=== PATIENT | male | born 1965 | race Caucasian/White ===

== ENCOUNTER 2021-05-15 17:23 | Inpatient (IN) ==
[2021-05-15] MEDS ORDERED: IOPAMIDOL 100 ML BOTTLE IV ONE (17:24)
[2021-05-15] MEDS ORDERED: 0.9 % SODIUM CHLORIDE 500 ML IV ONE (18:03)
--- NOTE | 2021-05-15 18:16 | XRay Report ---
CLINICAL INFORMATION: Shortness of breath. Covid infiltrates COMPARISON: 05/10/2021. TECHNIQUE: PA and Lateral views FINDINGS: The heart size, mediastinum and pulmonary vessels are unremarkable. Bilateral infiltrates, more prominent in the right lung, are noted. There is general improvement in the left mid and lower lung, but progression throughout the right lung. No effusion. IMPRESSION: Bilateral infiltrates with slight worsening diffusely throughout the right lung but improvement in the left mid and lower lung Interpreted and Authenticated by: Jarred Packer 05/15/21
[2021-05-15] MEDS ORDERED: DEXAMETHASONE 10 MG/ML VIAL IV ONE (18:55)
[2021-05-15] MEDS ORDERED: DEXAMETHASONE 10 MG/ML VIAL ONE (19:30)
[2021-05-15 19:49] LABS: ALT/SGPT 31 U/L (<40); AST/SGOT 40 U/L (<40); Albumin 3.3 gm/dL (3.2-5.2); Albumin/Globulin Ratio 1.1 (1.0-2.3); Alkaline Phosphatase 99 U/L (39-117); Blood Urea Nitrogen 23 mg/dL (6-20); Calcium 7.8 mg/dL (8.6-10.4); Carbon Dioxide 18 mmol/L (22-30); Chloride 99 mmol/L (96-108); Globulin 3.1 gm/dL (2.2-3.7); Glomerular Filtration Rate 85; Glucose 346 mg/dL (70-105)
--- NOTE | 2021-05-15 19:53 | Emergency Department Note ---
SOB HPI General Chief Complaint: Shortness of Breath/Dyspnea Stated Complaint: SOB, Hypoxia, COVID + Time Seen by Provider: 05/15/21 17:32 Source: patient Mode of arrival: ambulatory History of Present Illness HPI Narrative: 55-year-old male with known COVID-19 for at least 10 days now presenting back to the ED with sudden acute worsening just today. Is severely developing worsening shortness of breath. Denies any chest pain. Denies any GI symptoms or abdominal pain. Intermittent fevers. He was seen roughly a week ago diagnosed with COVID-19 at that time it was mild was sent home with home oxygen and dexamethasone was initially doing well but then acutely worsened today. No history of DVT or PE no leg swelling. He was quite hypoxic for EMS despite nonrebreather was given 3 duo nebs. Further detailed history unobtainable given respiratory distress Related Data Home Medications Medication Instructions Recorded Confirmed atorvastatin 10 mg tablet 5 mg PO QHS tab 05/10/21 05/10/21 glipizide 10 mg tablet, extended 20 mg PO QDAY tab 05/10/21 05/10/21 release 24 hr insulin degludec 200 unit/mL (3 100 unit SUBCUT QHS ml 05/10/21 05/10/21 mL) subcutaneous pen (Tresiba FlexTouch U-200 insulin) metformin 500 mg tablet,extended 1,000 mg PO BID tab 05/10/21 05/10/21 release 24 hr semaglutide 1 mg/dose (2 mg/1.5 1 mg SUBCUT QWEEK 05/10/21 05/10/21 mL) subcutaneous pen injector (Ozempic) sildenafil 100 mg tablet (Viagra) 100 mg PO QDAY PRN 05/10/21 05/10/21 spironolactone 25 mg tablet 25 mg PO QDAY 05/10/21 05/10/21 tamsulosin 0.4 mg capsule 0.4 mg PO QHS 05/10/21 05/10/21 testosterone cypionate 200 mg/mL 200 mg IM QWEEK ml 05/10/21 05/10/21 intramuscular oil (Depo-Testosterone) thyroid (pork) 90 mg tablet (FOOD SERVICE ATTENDANT 90 mg PO QDAY 05/10/21 05/10/21 Thyroid) valsartan 320 1 tab PO QDAY 05/10/21 05/10/21 mg-hydrochlorothiazide 25 mg tablet Previous Rx's Medication Instructions Recorded dexamethasone 6 mg tablet 6 mg PO QDAY #5 tab 05/10/21 Allergies Allergy/AdvReac Type Severity Reaction Status Date / Time No Known Drug Allergies Allergy Verified 05/15/21 17:33 Review of Systems ROS ROS Narrative: Narrative: Full review of systems unobtainable given respiratory distress PFSH Narrative Patient History Narrative: Narrative: Medical/Surgical/Family History All Active Problems (Updated 05/15/21 @ 21:05 by Johnny Campos DO) Pneumonia due to COVID-19 virus (Acute) Hypoxemia (Acute) Sepsis (Acute) Respiratory distress (Acute) Medical History Respiratory distress Social History Smoking Status: Former smoker Alcohol Intake Frequency: holiday/special occasion only Substance Use: does not use Exam Narrative Narrative: Constitutional: normally developed, in respiratory distress, anxious Head: Normocephalic, atraumatic, Eyes: No Icterus, ENT: Moist mucus membranes, Neck: Supple, Cardiac: Tachycardic regular heart sounds, palpable radial pulses, no peripheral edema Pulmonary: Hypoxic respiratory distress tachypneic; coarse breath sounds but no obvious wheeze rhonchi or rale Gastrointestinal: Abdomen soft, non-distended, non-tender, Musculoskeletal: No gross deformities, well perfused Skin: warm, dry Neuro: Alert and oriented. Course Vital Signs Vital signs: Vital Signs Temperature 36.8 C 05/15/21 17:25 Pulse Rate 127 H 05/15/21 17:25 Respiratory Rate 32 H 05/15/21 17:25 Pulse Oximetry (%) 79 L 05/15/21 17:25 Temperature 36.8 C 05/15/21 17:25 Pulse Rate 123 H 05/15/21 20:47 Respiratory Rate 30 H 05/15/21 20:47 Blood Pressure 158/147 05/15/21 20:47 Pulse Oximetry (%) 89 L 05/15/21 20:47 [facility] MDM Narrative Medical decision making narrative: Narrative: Patient with known COVID-19 now severely worsening today he is very hypoxic tachypneic, was immediately placed initially on BiPAP which he was having difficulty with so transition to high flow nasal cannula and work-up initiated, did initially give him a small fluid bolus Twelve-lead EKG shows sinus tachycardia 121 MO, QRS, QTc within normal, LVH type pattern, poor R wave progression, no obvious acute ischemia Reevaluation is improving on high flow nasal cannula but tends to mouth breathe a lot we will try him once again on BiPAP to see if he is more comfortable ABG shortly after being placed on high flow shows pH 7.48 PCO2 of 24 lactic acid 2.4 and a PO2 of 59 Chest x-ray with worsening COVID-19 awaiting further diagnostic results Electrolytes do show hyperglycemia 346 with a slightly elevated anion gap of 18 low normal bicarb, less suspicious for acute DKA, and ABG is not acidotic, suspect this is more likely due to severe COVID-19 and elevated lactic acid, is given further IV fluids 5 units IV insulin, will trend CT shows diffuse COVID-19 no PE CBC does show a new leukocytosis 12.8 up from 3, given his respiratory distress and presentation will cover him for possible bacterial pneumonia until can be further ruled out, given Rocephin azithromycin procalcitonin pending On reevaluation patient appears most comfortable on high flow nasal cannula also with a nonrebreather to help with his mouth breathing. His sats are in the 90s still a bit tachypneic but much improved he is now able to speak in sentences on this oxygen feels much better. I have spoken with the hospitalist who accepts admission ICU. Patient does meet sepsis criteria, almost certainly from COVID-19 source, he is clinically improving with our initial treatment, he has received a total of 1 L of IV fluids judiciously so as not to volume overload patient with acute COVID- 19. He is on antibiotics, will trend his lactate and he is admitted to the ICU at this time Critical Care Time Total CriticalCare time was at least 35 minutes, excluding separately reportable procedures. There was a high probability of clinically significant/life threatening deterioration in the patient's condition which required my urgent intervention. Lab Data Result diagrams: 05/15/21 18:30 05/15/21 18:30 Labs: Lab Results 05/15/21 05/15/21 05/15/21 Range/Units 18:30 18:30 18:30 WBC 12.8 H (4.5-11.0) K/mcL RBC 6.77 H (4.63-6.08) M/mcL Hgb 14.1 (13.7-17.5) g/dL Hct 45.0 (40.1-51.0) % MCV 66.5 L (80.0-100.0) fL MCH 20.8 L (26.0-34.0) pg MCHC 31.3 (31.0-36.0) g/dL RDW 21.3 H (11.5-14.5) % Plt Count 176 (140-440) K/mcL MPV 9.8 (7.4-10.4) fL Seg Neutrophils % 86 H (38-78) % Band Neutrophils % 1 (0-10) % Lymphocytes % 8 L (15-49) % Monocytes % (Manual) 5 (1-12) % Platelet Estimate Normal (Normal) RBC Morphology Abnormal A (Normal) Polychromasia 1+ A (None Seen) Hypochromasia 1+ A (None Seen) Anisocytosis 1+ A (None Seen) Microcytosis 1+ A (None Seen) Sodium 135 (133-145) mmol/L Potassium 5.1 (3.3-5.1) mmol/L Chloride 99 (96-108) mmol/L Carbon Dioxide 18 L (22-30) mmol/L Anion Gap 18.0 H (8.0-16.0) BUN 23 H (6-20) mg/dL Creatinine 1.0 (0.7-1.2) mg/dL POC Creatinine 1.0 (0.6-1.2) mg/dL GFR Calculation 85 Glucose 346 H (70-105) mg/dL Calcium 7.8 L (8.6-10.4) mg/dL Total Bilirubin 1.0 (0.1-1.0) mg/dL AST 40 H (<40) U/L ALT 31 (<40) U/L Alkaline Phosphatase 99 (39-117) U/L Troponin T < 0.01 (<0.03) ng/mL C-Reactive Protein 3.90 H (0.03-0.80) mg/dL Total Protein 6.4 (5.9-8.4) gm/dL Albumin 3.3 (3.2-5.2) gm/dL Globulin 3.1 (2.2-3.7) gm/dL Albumin/Globulin Ratio 1.1 (1.0-2.3) Procalcitonin (<0.10) ng/mL 12/13/21 Range/Units 18:30 WBC (4.5-11.0) K/mcL RBC (4.63-6.08) M/mcL Hgb (13.7-17.5) g/dL Hct (40.1-51.0) % MCV (80.0-100.0) fL MCH (26.0-34.0) pg MCHC (31.0-36.0) g/dL RDW (11.5-14.5) % Plt Count (140-440) K/mcL MPV (7.4-10.4) fL Seg Neutrophils % (38-78) % Band Neutrophils % (0-10) % Lymphocytes % (15-49) % Monocytes % (Manual) (1-12) % Platelet Estimate (Normal) RBC Morphology (Normal) Polychromasia (None Seen) Hypochromasia (None Seen) Anisocytosis (None Seen) Microcytosis (None Seen) Sodium (133-145) mmol/L Potassium (3.3-5.1) mmol/L Chloride (96-108) mmol/L Carbon Dioxide (22-30) mmol/L Anion Gap (8.0-16.0) BUN (6-20) mg/dL Creatinine (0.7-1.2) mg/dL POC Creatinine (0.6-1.2) mg/dL GFR Calculation Glucose (70-105) mg/dL Calcium (8.6-10.4) mg/dL Total Bilirubin (0.1-1.0) mg/dL AST (<40) U/L ALT (<40) U/L Alkaline Phosphatase (39-117) U/L Troponin T (<0.03) ng/mL C-Reactive Protein (0.03-0.80) mg/dL Total Protein (5.9-8.4) gm/dL Albumin (3.2-5.2) gm/dL Globulin (2.2-3.7) gm/dL Albumin/Globulin Ratio (1.0-2.3) Procalcitonin 0.20 H (<0.10) ng/mL Discharge Plan Patient/Caregiver Discharge Instructions Pt seen by FOOD SERVICE ATTENDANT/PA only: No Clinical Impression: Pneumonia due to COVID-19 virus, Hypoxemia, Sepsis Patient Disposition: Xfer Acute [facility] Condition: Critical Follow up with: Carina Hector ARNP [Primary Care Provider] - Prescriptions: No Action metformin 500 mg tablet extended release 24 hr 1,000 mg PO BID 0RF thyroid (pork) [FOOD SERVICE ATTENDANT Thyroid] 90 mg tablet 90 mg PO QDAY 0RF Tresiba FlexTouch U-200 200 unit/mL (3 mL) insulin pen 100 unit subcut QHS 0RF atorvastatin 10 mg tablet 5 mg PO QHS 0RF tamsulosin 0.4 mg capsule 0.4 mg PO QHS 0RF spironolactone 25 mg tablet 25 mg PO QDAY 0RF valsartan-hydrochlorothiazide 320-25 mg tablet 1 tab PO QDAY 0RF glipizide 10 mg tablet extended release 24hr 20 mg PO QDAY 0RF Ozempic 1 mg/dose (2 mg/1.5 mL) pen injector 1 mg subcut QWEEK 0RF sildenafil [Viagra] 100 mg tablet 100 mg PO QDAY [id number] Rx Instructions: administer 30 minutes to 4 hours before activity testosterone cypionate [Depo-Testosterone] 200 mg/mL oil 200 mg IM QWEEK 0RF dexamethasone 6 mg tablet 6 mg PO QDAY Qty: 5 0RF
[2021-05-15] MEDS ORDERED: LACTATED RINGERS 500 ML IV ONE (19:54)
[2021-05-15] MEDS ORDERED: INSULIN REGULAR, HUMAN 1 UNIT/0.01 ML UNIT IV ONE (19:54)
[2021-05-15] MEDS ORDERED: LORazepam 2 MG/ML VIAL IV ONE (19:54)
[2021-05-15 19:58] LABS: Anisocytosis 1+ (None Seen); Band Neutrophils % 1 % (0-10); Hypochromasia 1+ (None Seen); Lymphocytes % 8 % (15-49); Microcytosis 1+ (None Seen); Monocytes % (Manual) 5 % (1-12); Platelet Estimate NORMAL (Normal); Polychromasia 1+ (None Seen); RBC Morphology ABNORMAL (Normal); Segmented Neutrophils % 86 % (38-78)
[2021-05-15 20:00] LABS: Hemoglobin 14.1 g/dL (13.7-17.5); Mean Cell Volume 66.5 fL (80.0-100.0); Mean Corpuscular HGB Conc 31.3 g/dL (31.0-36.0); Mean Platelet Volume 9.8 fL (7.4-10.4); Platelet Count 176 K/mcL (140-440); RBC 6.77 M/mcL (4.63-6.08); Red Cell Distribution Width 21.3 % (11.5-14.5); WBC 12.8 K/mcL (4.5-11.0)
[2021-05-15] MEDS ORDERED: cefTRIAXone 1 GM VIAL IV ONE (20:03)
[2021-05-15] MEDS ORDERED: AZITHROMYCIN 500 MG in DEXTROSE 5% IN WATER 250 ML IV ONE (20:03)
[2021-05-15] MEDS ORDERED: ACETAMINOPHEN 1,000 MG/100 ML BAG IV ONE (21:01)
--- NOTE | 2021-05-15 21:19 | Internal Med History&Physical ---
HPI History of Present Illness Patient information: Note initiated : 05/15/21 at 9:10 pm Service Date, if different from initiated Date: [] Patient: Alvin Catalan a 55 y/o M admitted on for SOB, Hypoxia, COVID +. Chief Complaint: [shortness of breath] History of present illness: Mr. Catalan is a 55 year old M history of type 2 diabetes mellitus, hypothyroidism, essential hypertension's, presenting with 10-day history of shortness of breath, productive cough, and respiratory wheezing. Patient started to have symptoms of shortness of breath, productive cough with yellow sputum, respiratory wheezing, subjective fever and shaking chills about 10 days ago. He presented to our ED 5 days ago when he was being diagnosed with Covid pneumonia. He was sent home on 2 L of nasal cannula oxygen as well as dexamethasone. This morning he woke up feeling a lot worse decreased shortness of breath. As a result, he decided to come to our ED for further evaluations. Vital signs showing oxygen desaturating to the 80s, as well as tachycardia and t achypnea heart rate in the 1 teens and with the breathing up to 30s, respectively. Labs showing leukocytosis with WBC 12.8. Inflammatory markers elevated. Blood glucose 346. Chest x-ray showing bilateral infiltrate with likely worsening diffusely throughout the right lung but improvement in the left mid and lower lungs. Chest CT angiogram negative for any pulmonary embolism. Patient was being placed on high flow oxygen. Constitutional Constitutional: Present chills and fever(s); Absent excessive sweating, fatigue or weakness EENT Eyes: Absent blurry vision, change in vision, loss of vision or other visual disturbances Ears: Absent decreased hearing or tinnitus Nose, mouth and throat: Absent abnormal hearing, dry mouth, headache(s), nasal congestion or sore throat Cardiovascular Cardiovascular: Absent chest pain, chest pain at rest, edema, irregular heart rhythm or palpatations Respiratory Respiratory: Present cough, dyspnea, wheezing and excessive phlegm production Gastrointestinal Gastrointestinal: Absent abdominal pain, constipation, diarrhea, nausea or vomiting Musculoskeletal Musculoskeletal: Absent back pain, deformity, limited range of motion, muscle cramps, muscle weakness or numbness Integumentary Integumentary: Absent lesions, rash or wounds Neurological Neurological: Absent focal weakness, headache(s) or numbness Psychiatric Psychiatric: Absent anxiety, depression or hallucinations PFSH PFSH All Active Problems (Updated 05/15/21 @ 21:16 by Dequan Luque MD) Hypothyroidism (Acute) Essential hypertension (Acute) Obesity (BMI 30-39.9) (Acute) T2DM (type 2 diabetes mellitus) (Acute) Acute respiratory failure with hypoxia (Acute) Pneumonia due to COVID-19 virus (Acute) Hypoxemia (Acute) Sepsis (Acute) Respiratory distress (Acute) Medical History Respiratory distress Social History alcohol intake frequency: holiday/special occasion only substance use type: does not use MEDS/ALLERGIES Home Medications and Allergies Home Medications Medication Instructions Recorded Confirmed Type atorvastatin 10 mg tablet 5 mg PO QHS tab 05/10/21 05/10/21 History dexamethasone 6 mg tablet 6 mg PO QDAY #5 tab 05/10/21 Rx glipizide 10 mg tablet, extended 20 mg PO QDAY tab 05/10/21 05/10/21 History release 24 hr insulin degludec 200 unit/mL (3 100 unit SUBCUT QHS ml 05/10/21 05/10/21 Histo ry mL) subcutaneous pen (Tresiba FlexTouch U-200 insulin) metformin 500 mg tablet,extended 1,000 mg PO BID tab 05/10/21 05/10/21 History release 24 hr semaglutide 1 mg/dose (2 mg/1.5 1 mg SUBCUT QWEEK 05/10/21 05/10/21 History mL) subcutaneous pen injector (Ozempic) sildenafil 100 mg tablet (Viagra) 100 mg PO QDAY PRN 05/10/21 05/10/21 History spironolactone 25 mg tablet 25 mg PO QDAY 05/10/21 05/10/21 History tamsulosin 0.4 mg capsule 0.4 mg PO QHS 05/10/21 05/10/21 History testosterone cypionate 200 mg/mL 200 mg IM QWEEK ml 05/10/21 05/10/21 History intramuscular oil (Depo-Testosterone) thyroid (pork) 90 mg tablet (ARCHITECTURAL PROJECT MANAGER 90 mg PO QDAY 05/10/21 05/10/21 History Thyroid) valsartan 320 1 tab PO QDAY 05/10/21 05/10/21 History mg-hydrochlorothiazide 25 mg tablet Allergies Allergy/AdvReac Type Severity Reaction Status Date / Time No Known Drug Allergies Allergy Verified 05/15/21 17:33 EXAM Constitutional Vitals: Temp Pulse Resp BP Pulse Ox 36.8 C 123 H 30 H 158/147 89 L 05/15/21 17:25 05/15/21 20:47 05/15/21 20:47 05/15/21 20:47 05/15/21 20:47 General appearance: cooperative, mild distress, no acute distress and obese Head Head exam: Present atraumatic and normocephalic Eye Eye exam: Present EOMI and PERRL ENT ENT exam: Present mucous membranes moist, normal exam and normal external ear exam Additional comments: High flow oxygen plus oxymask in place Neck Neck exam: Present normal inspection; Absent lymphadenopathy, tenderness or thyromegaly Respiratory Respiratory exam: Present decreased breath sounds and rhonchi; Absent accessory muscle use, respiratory distress or wheezes Cardiovascular Cardiovascular exam: Present tachycardia; Absent JVD GI/Abdominal GI/Abdominal exam: Present normal bowel sounds and soft; Absent organomegaly or tenderness Rectal Rectal exam: Present deferred Extremities Exam Extremities exam: Present full ROM, normal capillary refill and normal inspection; Absent tenderness Neurological Exam Neurological exam: Present alert, CN II-XII intact and oriented X3; Absent motor sensory deficit Psychiatric Psychiatric exam: Present normal affect and normal mood; Absent anxious or depressed Skin Skin exam: Present dry and intact DATA Data Completed and Pending Labs: Labs from last 24 hours 05/15/21 05/15/21 05/15/21 18:30 18:30 18:30 WBC RBC Hgb Hct MCV MCH MCHC RDW Plt Count MPV Seg Neutrophils % Band Neutrophils % Lymphocytes % Monocytes % (Manual) Platelet Estimate RBC Morphology Polychromasia Hypochromasia Anisocytosis Microcytosis Sodium 135 Potassium 5.1 Chloride 99 Carbon Dioxide 18 L Anion Gap 18.0 H BUN 23 H Creatinine 1.0 POC Creatinine 1.0 GFR Calculation 85 Glucose 346 H Calcium 7.8 L Total Bilirubin 1.0 AST 40 H ALT 31 Alkaline Phosphatase 99 Troponin T < 0.01 C-Reactive Protein 3.90 H Total Protein 6.4 Albumin 3.3 Globulin 3.1 Albumin/Globulin Ratio 1.1 Procalcitonin 0.20 H 05/15/21 18:30 WBC 12.8 H RBC 6.77 H Hgb 14.1 Hct 45.0 MCV 66.5 L MCH 20.8 L MCHC 31.3 RDW 21.3 H Plt Count 176 MPV 9.8 Seg Neutrophils % 86 H Band Neutrophils % 1 Lymphocytes % 8 L Monocytes % (Manual) 5 Platelet Estimate Normal RBC Morphology Abnormal A Polychromasia 1+ A Hypochromasia 1+ A Anisocytosis 1+ A Microcytosis 1+ A Sodium Potassium Chloride Carbon Dioxide Anion Gap BUN Creatinine POC Creatinine GFR Calculation Glucose Calcium Total Bilirubin AST ALT Alkaline Phosphatase Troponin T C-Reactive Protein Total Protein Albumin Globulin Albumin/Globulin Ratio Procalcitonin A/P Assessment and plan (1) Pneumonia due to COVID-19 virus: Status: Acute (2) Acute respiratory failure with hypoxia: Status: Acute (3) T2DM (type 2 diabetes mellitus): Status: Acute (4) Obesity (BMI 30-39.9): Status: Acute (5) Essential hypertension: Status: Acute (6) Hypothyroidism: Status: Acute Narrative A/P Narrative: Assessment and Plans: 1. CoVID pneumonia with acute respiratory failure with hpoxia: Admit to inpatient PCU telemetry Isolation protocol: airborne and contact Lactic acid Inflammatory markers Blood culture cbc w/ auto diff in the morning to trend WBC ABG CXR every few days or when clinically deteriorates Supplemental oxygen therapy titrate to achieve spo2>=92%, currently on high flow oxygen 40L/min FiO2 100% plus oxymask Remdesivir Dexamethasone Actemra Lovenox HCTZ as gentle diuretics Tylenol PRN fever Robitussin DM PRN cough DuoNEB NEB PRN wheezing Rocehpin/Zithromax to cover bacterial pneumonia given R>L infiltrates in the CXR 2. Essential HTN: HCTZ Valsartan 3. Hypothyroidism: Continue thyroid oral replacement therapy 4. T2DM: HgA1c Hold Metformin Glipizide Long acting insulin (Lantus or equivalent) 100 unit HS High dose correctional scale insulin AC HS Accu Chek AC HS Hypoglycemia protocol Diabetic diet 5. Obesity BMI 36.8: Seconds Handler patient on life style modifications including regular exercise and healthy diet in order to lose weight GI ppx: not currently indicated DVT ppx: Lovenox Code status: Full Prognosis: extremely guarded Disposition: inpatient PCU telemetry Time Spent With Patient Time: Total time spent is greater than 50% in coordination of care (as documented) at patient's floor/unit and/or counseling patient: Total time spent with greater than 50% in coordination of care (as documented) at patient's floor/unit and/or counseling patient:: Greater than 35 minutes
[2021-05-15 22:16] LABS: Fibrinogen 222 mg/dL (200-400); INR 1.2 (0.9-1.1)
[2021-05-15 22:24] LABS: Ferritin 165.7 ng/mL (30.0-400.0)
[2021-05-16] MEDS ORDERED: REMDESIVIR 200 MG in 0.9 % SODIUM CHLORIDE 250 ML IV ONE (00:26)
[2021-05-16] MEDS ORDERED: SENNOSIDES 1 TABLET PO PRN (00:26)
[2021-05-16] MEDS ORDERED: ONDANSETRON 4 MG/2 ML VIAL IV PRN (00:26)
[2021-05-16] MEDS ORDERED: DEXTROSE 31 GM ORAL.SUSP PO PRN (00:26)
[2021-05-16] MEDS ORDERED: cefTRIAXone 1 GM in DEXTROSE 5% IN WATER 50 ML IV SCH (00:26)
[2021-05-16] MEDS ORDERED: guaiFENesin/DEXTROMETHORPHAN ORAL SOL PO PRN (00:26)
[2021-05-16] MEDS ORDERED: DEXTROSE 50% 50 ML VIAL IV PRN (00:26)
[2021-05-16] MEDS ORDERED: ACETAMINOPHEN 325 MG TABLET PO PRN (00:26)
[2021-05-16] MEDS ORDERED: REMDESIVIR 100 MG in 0.9 % SODIUM CHLORIDE 250 ML IV SCH ×2 (00:26→16:00)
[2021-05-16] MEDS ORDERED: LACTULOSE 20 GM/30 ML ORAL.SOL PO PRN (00:26)
[2021-05-16] MEDS ORDERED: IPRATROPIUM/ALBUTEROL 3 ML AMPUL.NEB NEB PRN (00:26)
[2021-05-16] MEDS: AZITHROMYCIN 500 MG in DEXTROSE 5% IN WATER 250 ML IV SCH ×2 (00:48→10:18)
[2021-05-16] MEDS: 0.9 % SODIUM CHLORIDE 10 ML SYRINGE IV SCH ×4 (00:49→20:35)
[2021-05-16] MEDS ORDERED: INSULIN LISPRO 1 UNIT/0.01 ML UNIT SQ ONE (03:15)
[2021-05-16] MEDS: INSULIN LISPRO 1 UNIT/0.01 ML UNIT SQ SCH ×5 (03:30→20:34)
--- NOTE | 2021-05-16 03:46 | Cat Scan Report ---
CLINICAL INFORMATION: Shortness of breath hypoxia. Pelvic pneumonia COMPARISON: Chest x-rays 04/02/2008 and 05/15/2021 TECHNIQUE: 80 cc of Isovue-370 were injected intravenously. Using SmartPrep to maximize pulmonary artery opacification, .625mm helical slices were obtained from the lung apices through the lung bases. Following reconstruction, 2.5 mm sagittal, coronal, and axial reformations were processed. The exam was reviewed at mediastinal, lung, and bone windows. The exam was performed using radiation dose optimization techniques including, but not limited to, automated exposure control, adjustment of the mA and/or kV according to patient size and use of iterative reconstruction technique. FINDINGS: Pulmonary parenchymal windows show large diffuse groundglass infiltrates throughout both lungs with relative sparing of the right middle lobe, anterior segment right upper lobe and the anterior basilar segment right lower lobe. Findings are compatible with bilateral Covid pneumonia. Pleural spaces are unremarkable-no effusions. Mediastinal windows show the heart is grossly normal in size and configuration. Heavy calcific plaque present within the proximal and mid LAD coronary arteries with smaller amounts in the mid circumflex and right artery arteries. The pulmonary arteries are normal diameter and well-opacified without evidence of embolus. Thoracic aorta is also normal diameter and well-opacified. There is mildly enlarged lymph nodes in the pericarinal and lower paratracheal region ranging up to 11 mm. These represent benign reactive adenopathy.. Small hiatal hernia noted. Esophagus otherwise grossly normal.. A 14 mm partially calcified nodule in the mid right thyroid lobe is likely a benign adenoma. Bones and soft tissues the chest wall are normal. Images through the superior abdomen show mild bilateral adrenal hyperplasia. The spleen is incompletely imaged but appears mildly enlarged. It is estimated to be 15 cm in vertical dimension. There are two stones in the gallbladder neck-both approximate 6 mm. The gallbladder, visualized liver and pancreas are otherwise normal. Bone windows show no osseous abnormality IMPRESSION: 1. No evidence of pulmonary embolus. 2. Diffuse groundglass infiltrates throughout both lungs with relative sparing of the right middle lobe, anterior segment left upper lobe and anterior basilar segment right lower lobe. Findings compatible with bilateral Covid pneumonia 3. Heavy calcific plaque in the proximal and mid LAD. With smaller amounts in the circumflex and right coronary artery. This is more than typically seen in this age group. Consider cardiology referral for stress testing. 4. Small hiatal hernia. 5. Cholelithiasis. 6. Mild bilateral adrenal hyperplasia 7. Mild splenomegaly likely related to infection. 8. 14 mm partially calcified nodule in the mid thyroid lobe likely benign adenoma. Consider thyroid ultrasound Interpreted and Authenticated by: Jarred Packer 05/16/21
[2021-05-16] MEDS ORDERED: TOCILIZUMAB IV SCH (07:00)
[2021-05-16] MEDS ORDERED: SODIUM CHLORIDE 0.9% IV SCH (07:00)
[2021-05-16] MEDS ORDERED: INSULIN LISPRO 1 UNIT/0.01 ML UNIT SQ SCH (07:30)
[2021-05-16] MEDS: glipiZIDE 5 MG TAB.XL.24H PO SCH (07:42)
[2021-05-16] MEDS: THYROID, PORK 60 MG TABLET PO SCH (07:42)
[2021-05-16] MEDS ORDERED: OLMESARTAN MEDOXOMIL 20 MG TABLET PO SCH (09:00)
[2021-05-16] MEDS ORDERED: HYDROCHLOROTHIAZIDE 25 MG TABLET PO SCH (09:00)
[2021-05-16] MEDS ORDERED: SPIRONOLACTONE 25 MG TABLET PO SCH (09:00)
[2021-05-16] MEDS ORDERED: VALSARTAN HYDROCHLOROTHIAZIDE PO SCH (09:00)
[2021-05-16 09:27] LABS: Phosphorous 3.2 mg/dL (2.5-4.5)
[2021-05-16 09:32] LABS: ALT/SGPT 28 U/L (<40); AST/SGOT 38 U/L (<40); Albumin/Globulin Ratio 0.9 (1.0-2.3); Alkaline Phosphatase 97 U/L (39-117); Bilirubin,Total 0.9 mg/dL (0.1-1.0); Blood Urea Nitrogen 25 mg/dL (6-20); Calcium 8.3 mg/dL (8.6-10.4); Carbon Dioxide 20 mmol/L (22-30); Chloride 105 mmol/L (96-108); Globulin 3.3 gm/dL (2.2-3.7); Glomerular Filtration Rate 96; Glucose 232 mg/dL (70-105)
--- NOTE | 2021-05-16 09:48 | EKG ---
[facility] Test Date: 2021-05-15 Pat Name: Alvin Catalan Department: ED Room: Gender: Male Regulatory Consultant: sb : 1965 Requested By: Johnny Campos Order Number: [id number] Reading MD: Dustin Head Measurements Intervals Noti Rate: 121 P: 59 OH: 140 QRS: -54 QRSD: 99 T: 106 QT: 339 QTc: 481 Interpretive Statements Sinus tachycardia Abnormal R-wave progression, late transition Baseline wander in lead(s) V1 Electronically Signed On 05-16-2021 9:48:49 PST by Dustin Head /store/M0/[id number]
[2021-05-16 09:50] LABS: Estimated Average Glucose(eAG) 237 mg/dL; Hemoglobin A1C 9.9 % Hgb (4.0-6.0)
[2021-05-16 10:08] LABS: Basophils # (Auto) 0.03 K/mcL (0.00-0.30); Basophils % (Auto) 0.2 % (0.0-2.0); Eosinophils # (Auto) 0 K/mcL (0.00-0.70); Eosinophils % (Auto) 0 % (0.0-7.0); Hematocrit 43.2 % (40.1-51.0); Hemoglobin 13.9 g/dL (13.7-17.5); Lymphocytes # (Auto) 0.99 K/mcL (1.50-4.80); Lymphocytes % (Auto) 7.4 % (15.5-49.0); Mean Cell Volume 66.4 fL (80.0-100.0); Mean Corpuscular HGB Conc 32.2 g/dL (31.0-36.0); Monocytes # (Auto) 0.63 K/mcL (0.10-0.90); Monocytes % (Auto) 4.7 % (1.0-12.0); Neutrophils % (Auto) 87.7 % (38.0-78.0); Platelet Count 150 K/mcL (140-440); RBC 6.51 M/mcL (4.63-6.08); Red Cell Distribution Width 21.1 % (11.5-14.5); WBC 13.4 K/mcL (4.5-11.0)
[2021-05-16] MEDS: DEXAMETHASONE 4 MG TABLET PO SCH (10:18)
[2021-05-16] MEDS: cefTRIAXone 1 GM VIAL IV SCH (10:18)
[2021-05-16] MEDS: ENOXAPARIN 40 MG/0.4 ML SYRINGE SQ SCH (10:19)
[2021-05-16] MEDS: DOCUSATE SODIUM 100 MG CAPSULE PO SCH ×2 (11:02→20:33)
[2021-05-16] MEDS: FUROSEMIDE 20 MG/2 ML VIAL IV SCH ×2 (11:45→15:30)
--- NOTE | 2021-05-16 12:03 | Internal Med Progress Note ---
SUBJECTIVE Subjective Patient information: Note initiated : 05/16/21 at 11:56 am Service Date, if different from initiated Date: [] Patient: Alvin Catalan 55 y/o M admitted on 05/16/21 for SOB, Hypoxia, COVID +. Chief Complaint: [SOB] Principal diagnosis: CoVID pneumonia Interval history: Mr. Catalan is a 55 year old M history of type 2 diabetes mellitus, hypothyroidism, essential hypertension's, presenting with 10-day history of shortness of breath, productive cough, and respiratory wheezing. Patient started to have symptoms of shortness of breath, productive cough with yellow sputum, respiratory wheezing, subjective fever and shaking chills about 10 days ago. He presented to our ED 5 days ago when he was being diagnosed with Covid pneumonia. He was sent home on 2 L of nasal cannula oxygen as well as dexam ethasone. This morning he woke up feeling a lot worse decreased shortness of breath. As a result, he decided to come to our ED for further evaluations. Vital signs showing oxygen desaturating to the 80s, as well as tachycardia and tachypnea heart rate in the 1 teens and with the breathing up to 30s, respectively. Labs showing leukocytosis with WBC 12.8. Inflammatory markers elevated. Blood glucose 346. Chest x-ray showing bilateral infiltrate with likely worsening diffusely throughout the right lung but improvement in the left mid and lower lungs. Chest CT angiogram negative for any pulmonary embolism. Patient was being placed on high flow oxygen. 05/16: Afebrile. Been on high flow oxygen 50L/min FiO2 100% plus nonrebreather mask 15L/min. Received Actemra on 05/16, received loading dose of Remdesivir. On Dexamethasone. Tried BiPAP earlier this morning, patient could no tolerate it, stating that "I can't breath with this mask on me". Oxygen desaturated to the 60s% on room air, took about an hour for spo2 to reach high 80s on high flow oxygen 50L/min FiO2 100% plus nonrebreather mask 15L/min. Constitutional Vitals: Vital Signs Temp Pulse Resp BP Pulse Ox 36.8 C 75 33 H 139/59 92 05/16/21 08:01 05/16/21 10:02 05/16/21 10:02 05/16/21 10:02 05/16/21 10:02 Period Temp Pulse Resp BP Sys/Gaston Pulse Ox Last 24 Hr 36.8 C-37.3 C 74-128 20-42 110-175/42-147 79-97 Intake and Output 05/15/21 05/16/21 05/16/21 21:59 05:59 13:59 Intake Total 500 2060 325 Output Total 600 600 450 Balance -100 1460 -125 Weight 126.552 kg 122.289 kg 122.289 kg Patient Weight 05/17/21 05:59 Weight 122.289 kg Intake & Output: Intake & Output 05/15/21 05/16/21 05/16/21 21:59 05:59 13:59 Intake Total 500 2060 325 Output Total 600 600 450 Balance -100 1460 -125 Weight 126.552 kg 122.289 kg 122.289 kg Intake: Nourishment/Supplement quantity 200 (ml) IV 500 1100 125 Sodium Chloride 0.9% 500 ml @ 500 Wide Open IV BOLUS ONE Rx#: [id number] Zithromax 500 mg In Dextrose 5% 250 in Water 250 ml @ 250 mls/hr IV ONCE ONE Rx#:[id number] Lactated Ringers 500 ml @ Wide 500 Open IV BOLUS ONE Rx#:[id number] Veklury 200 mg In Sodium 250 Chloride 0.9% 250 ml @ 500 mls/ hr IV ONCE ONE Rx#:[id number] Actemra 800 mg In Sodium 125 Chloride 0.9% 85 ml @ 100 mls/ hr IV ONCE TIM Rx#:[id number] Oral 960 Output: Void Amount 600 600 450 Other: Meal Nourishment/Supplement Nourishment/Supplement name glucerna Urine Appearance Clear Urine Color Dark Opal Bright Yellow General appearance: moderate distress and obese Head Head exam: Present atraumatic and normal inspection Eye Eye exam: Present normal appearance ENT ENT exam: Present mucous membranes moist, normal exam and normal external ear exam Additional comments: High flow oxygen plus nonrebreather mask in place Neck Neck exam: Present normal inspection Respiratory Respiratory exam: Present normal respiratory exam, decreased breath sounds and rhonchi Cardiovascular Cardiovascular exam: Present normal rate and rhythm GI/Abdominal GI/Abdominal exam: Present normal bowel sounds Back Exam Back exam: Present normal inspection Neurological Exam Neurological exam: Present alert and oriented X3 Skin Skin exam: Present intact and warm OBJ DATA Labs CBC & Chem 7: 05/16/21 05:38 05/16/21 05:38 Labs: Abnormal Lab Results 05/16/21 05/16/21 05/16/21 05:38 05:38 05:38 WBC 13.4 H RBC 6.51 H MCV 66.4 L MCH 21.4 L RDW 21.1 H Neut % (Auto) 87.7 H Lymph % (Auto) 7.4 L Lymph # (Auto) 0.99 L Seg Neutrophils % Lymphocytes % Absolute Neutrophils 11.78 H RBC Morphology Polychromasia Hypochromasia Anisocytosis Microcytosis PT INR D-Dimer Potassium 5.3 H Carbon Dioxide 20 L Anion Gap BUN 25 H Glucose 232 H Hemoglobin A1c 9.9 H Calcium 8.3 L Magnesium 2.7 H AST Lactate Dehydrogenase C-Reactive Protein Albumin 3.0 L Albumin/Globulin Ratio 0.9 L Beta-Hydroxybutyrate Procalcitonin 05/15/21 05/15/21 05/15/21 18:30 18:30 18:30 WBC RBC MCV MCH RDW Neut % (Auto) Lymph % (Auto) Lymph # (Auto) Seg Neutrophils % Lymphocytes % Absolute Neutrophils RBC Morphology Polychromasia Hypochromasia Anisocytosis Microcytosis PT 16.0 H INR 1.2 H D-Dimer > 20.0 H Potassium Carbon Dioxide Anion Gap BUN Glucose Hemoglobin A1c Calcium Magnesium AST Lactate Dehydrogenase 876 H C-Reactive Protein Albumin Albumin/Globulin Ratio Beta-Hydroxybutyrate 2.76 H Procalcitonin 05/15/21 05/15/21 05/15/21 18:30 18:30 18:30 WBC 12.8 H RBC 6.77 H MCV 66.5 L MCH 20.8 L RDW 21.3 H Neut % (Auto) Lymph % (Auto) Lymph # (Auto) Seg Neutrophils % 86 H Lymphocytes % 8 L Absolute Neutrophils RBC Morphology Abnormal A Polychromasia 1+ A Hypochromasia 1+ A Anisocytosis 1+ A Microcytosis 1+ A PT INR D-Dimer Potassium Carbon Dioxide 18 L Anion Gap 18.0 H BUN 23 H Glucose 346 H Hemoglobin A1c Calcium 7.8 L Magnesium AST 40 H Lactate Dehydrogenase C-Reactive Protein 3.90 H Albumin Albumin/Globulin Ratio Beta-Hydroxybutyrate Procalcitonin 0.20 H Meds: Medications Acetaminophen (Acetaminophen 325 Mg Tablet) 650 mg PO Q6HP PRN; Protocol PRN Reason: Per Pain Protocol/Fever > 101 Albuterol/Ipratropium (Ipratropium/Albuterol 3 Ml Ampul.Neb) 3 ml NEB Q4HRT PRN PRN Reason: Wheezing Atorvastatin Calcium (Atorvastatin 10 Mg Tablet) 5 mg PO QHS [facility] Ceftriaxone Sodium (Ceftriaxone 1 Gm Vial) 1 gm IV Q24H [facility] Last Admin: 05/16/21 10:18 Dose: 1 gm Documented by: Dexamethasone (Dexamethasone 4 Mg Tablet) 6 mg PO QDAY [facility] Last Admin: 05/16/21 10:18 Dose: 6 mg Documented by: Dextrose (Dextrose 50% 50 Ml Vial) 0 ml IV UD PRN PRN Reason: Hypoglycemia Diagnostic Test (Pha) (Accu-Chek 1 Each Strip) 1 each FS ACHS [facility] Last Admin: 05/16/21 07:42 Dose: 1 each Documented by: Docusate Sodium (Docusate Sodium 100 Mg Capsule) 100 mg PO BID [facility] Last Admin: 05/16/21 11:02 Dose: Not Given Documented by: Enoxaparin Sodium (Enoxaparin 40 Mg/0.4 Ml Syringe) 40 mg SQ DAILY [facility] Last Admin: 05/16/21 10:19 Dose: 40 mg Documented by: Furosemide (Furosemide 20 Mg/2 Ml Vial) 20 mg IV BIDD [facility] Glipizide (Glipizide 5 Mg Tab.Xl.24h) 20 mg PO QAMAC [facility] Last Admin: 05/16/21 07:42 Dose: 20 mg Documented by: Glucose (Dextrose 31 Gm Oral.Susp) 15 gm PO PRN PRN PRN Reason: Hypoglycemia Guaifenesin (Guaifenesin/Dextromethorphan Oral Crys) 10 ml PO Q4HP PRN PRN Reason: Cough Azithromycin 500 mg/ Dextrose 250 mls @ 250 mls/hr IV Q24H [facility]; Protocol Stop: 05/18/21 01:25 Last Admin: 05/16/21 10:18 Dose: 250 mls/hr Documented by: REMDESIVIR 100 mg/ Sodium (Chloride) 250 mls @ 500 mls/hr IV Q24H [facility] Stop: 05/19/21 16:29 Insulin Glargine (Insulin Glargine, Human 1 Unit/0.01 Ml) 100 unit SQ QHS [facility] Insulin Human Lispro (Insulin Lispro 1 Unit/0.01 Ml Unit) 0 unit SQ ACHS TIM; Protocol Last Admin: 05/16/21 07:45 Dose: 6 units Documented by: Lactulose (Lactulose 20 Gm/30 Ml Oral.Crys) 10 gm PO DAILYP PRN PRN Reason: Constipation Lorazepam (Lorazepam 2 Mg/Ml Vial) 1 mg IV Q2-4HP PRN PRN Reason: ANXIETY/SEDATION Olmesartan (Olmesartan Medoxomil 20 Mg Tablet) 40 mg PO DAILY [facility] Ondansetron HCl (Ondansetron 4 Mg/2 Ml Vial) 4 mg IV Q4HP PRN; Protocol PRN Reason: Nausea And Vomiting Senna (Sennosides 1 Tablet) 2 tab PO HSP PRN PRN Reason: Constipation Sodium Chloride (0.9 % Sodium Chloride 10 Ml Syringe) 10 ml IV Q8 [facility] Last Admin: 05/16/21 04:58 Dose: 10 ml Documented by: Tamsulosin HCl (Tamsulosin 0.4 Mg Capsule) 0.4 mg PO QHS [facility] Thyroid (Thyroid, Pork 60 Mg Tablet) 90 mg PO ACB [facility] Last Admin: 05/16/21 07:42 Dose: 90 mg Documented by: A/P Assessment and plan (1) Pneumonia due to COVID-19 virus: Status: Acute (2) Acute respiratory failure with hypoxia: Status: Acute (3) T2DM (type 2 diabetes mellitus): Status: Acute (4) Obesity (BMI 30-39.9): Status: Acute (5) Essential hypertension: Status: Acute (6) Hypothyroidism: Status: Acute (7) Hyperkalemia: Status: Acute Narrative A/P Narrative: Assessment and Plans: 1. CoVID pneumonia with acute respiratory failure with hpoxia: Stays in inpatient PCU telemetry Isolation protocol: airborne and contact Lactic acid Inflammatory markers Blood culture cbc w/ auto diff in the morning to trend WBC ABG CXR every few days or when clinically deteriorates Supplemental oxygen therapy titrate to achieve spo2>=92%, currently on high flow oxygen 50L/min FiO2 100% plus oxymask---> Will give BiPAP another try, if not, will have to proceed with intubation and mechanical ventilation. Add Ativan 1mg IV q2-4hr PRN anxiety for patient to better cope with BiPAP Remdesivir Dexamethasone s/p Actemra 05/16 Lovenox Lasix 20mg IV BID instead of Aldactone and HCTZ for gentle diuretics Tylenol PRN fever Robitussin DM PRN cough DuoNEB NEB PRN wheezing Rocehpin/Zithromax to cover bacterial pneumonia given R>L infiltrates in the CXR 2. Essential HTN: Currently normotensive d/c HCTZ d/c Olmesartan given hyperkalemia Start Lasix 20mg IV BID 3. Hypothyroidism: Continue thyroid oral replacement therapy 4. T2DM: HgA1c Hold Metformin Glipizide Long acting insulin (Lantus or equivalent) 100 unit HS High dose correctional scale insulin AC HS Accu Chek AC HS Hypoglycemia protocol Diabetic diet 5. 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 Hyperkalemia: d/c HCTZ d/c Olmesartan given hyperkalemia Start Lasix 20mg IV BID Continue insulin regimen, see #4 CMP daily to trend serum potassium level GI ppx: not currently indicated DVT ppx: Lovenox Code status: Full Prognosis: extremely guarded Disposition: inpatient PCU telemetry Time Spent With Patient Time: Total time spent is greater than 50% in coordination of care (as documented) at patient's floor/unit and/or counseling patient: Total time spent with greater than 50% in coordination of care (as documented) at patient's floor/unit and/or counseling patient:: Greater than 35 minutes QUALITY VTE Deep Vein Thrombosis/Pulmonary Embolism Present on Admission: No
[2021-05-16] MEDS: LORazepam 2 MG/ML VIAL IV PRN ×3 (12:15→23:33)
[2021-05-16] MEDS ORDERED: ALPRAZolam 0.5 MG TABLET PO PRN (20:07)
[2021-05-16] MEDS ORDERED: TAMSULOSIN 0.4 MG CAPSULE PO SCH (21:00)
[2021-05-16] MEDS ORDERED: ATORVASTATIN 10 MG TABLET PO SCH (21:00)
[2021-05-16] MEDS ORDERED: INSULIN GLARGINE, HUMAN 1 UNIT/0.01 ML SQ SCH (21:00)
[2021-05-17] MEDS ORDERED: HALOPERIDOL LACTATE 5 MG/ML VIAL IV PRN ×2 (00:55→06:15)
[2021-05-17] MEDS ORDERED: HALOPERIDOL LACTATE 5 MG/ML VIAL ONE (01:06)
[2021-05-17] MEDS: 0.9 % SODIUM CHLORIDE 10 ML SYRINGE IV SCH ×2 (05:17→13:43)
[2021-05-17] MEDS: INSULIN LISPRO 1 UNIT/0.01 ML UNIT SQ SCH (06:50)
[2021-05-17] MEDS: THYROID, PORK 60 MG TABLET PO SCH (07:10)
[2021-05-17] MEDS: glipiZIDE 5 MG TAB.XL.24H PO SCH (07:10)
[2021-05-17] MEDS: FUROSEMIDE 20 MG/2 ML VIAL IV SCH (07:12)
[2021-05-17] MEDS: DOCUSATE SODIUM 100 MG CAPSULE PO SCH (07:12)
[2021-05-17 08:54] LABS: Basophils # (Auto) 0.04 K/mcL (0.00-0.30); Basophils % (Auto) 0.3 % (0.0-2.0); Eosinophils # (Auto) 0.06 K/mcL (0.00-0.70); Eosinophils % (Auto) 0.5 % (0.0-7.0); Hematocrit 46.1 % (40.1-51.0); Hemoglobin 14.4 g/dL (13.7-17.5); Lymphocytes # (Auto) 1.13 K/mcL (1.50-4.80); Lymphocytes % (Auto) 9.7 % (15.5-49.0); Mean Cell Volume 66.7 fL (80.0-100.0); Mean Corpuscular HGB Conc 31.2 g/dL (31.0-36.0); Monocytes # (Auto) 0.54 K/mcL (0.10-0.90); Monocytes % (Auto) 4.6 % (1.0-12.0); Neutrophils % (Auto) 84.9 % (38.0-78.0); Platelet Count 142 K/mcL (140-440); RBC 6.91 M/mcL (4.63-6.08); Red Cell Distribution Width 22.2 % (11.5-14.5); WBC 11.7 K/mcL (4.5-11.0)
[2021-05-17] MEDS: cefTRIAXone 1 GM VIAL IV SCH (09:14)
[2021-05-17] MEDS: ENOXAPARIN 40 MG/0.4 ML SYRINGE SQ SCH (09:14)
[2021-05-17] MEDS: DEXAMETHASONE 4 MG TABLET PO SCH (09:14)
--- NOTE | 2021-05-17 09:14 | Internal Med Progress Note ---
SUBJECTIVE Subjective Patient information: Note initiated : 05/17/21 at 9:10 am Service Date, if different from initiated Date: [] Patient: Alvin Catalan 55 y/o M admitted on 05/16/21 for SOB, Hypoxia, COVID +. Chief Complaint: [CoVID pneumonia] Principal diagnosis: CoVID pneumonia Interval history: Mr. Catalan is a 55 year old M history of type 2 diabetes mellitus, hypothyroidism, essential hypertension's, presenting with 10-day history of shortness of breath, productive cough, and respiratory wheezing. Patient st arted to have symptoms of shortness of breath, productive cough with yellow sputum, respiratory wheezing, subjective fever and shaking chills about 10 days ago. He presented to our ED 5 days ago when he was being diagnosed with Covid pneumonia. He was sent home on 2 L of nasal cannula oxygen as well as dexamethasone. This morning he woke up feeling a lot worse decreased shortness of breath. As a result, he decided to come to our ED for further evaluations. Vital signs showing oxygen desaturating to the 80s, as well as tachycardia and tachypnea heart rate in the 1 teens and with the breathing up to 30s, respectively. Labs showing leukocytosis with WBC 12.8. Inflammatory markers elevated. Blood glucose 346. Chest x-ray showing bilateral infiltrate with likely worsening diffusely throughout the right lung but improvement in the left mid and lower lungs. Chest CT angiogram negative for any pulmonary embolism. Patient was being placed on high flow oxygen. 05/16: Afebrile. Been on high flow oxygen 50L/min FiO2 100% plus nonrebreather mask 15L/min. Received Actemra on 05/16, received loading dose of Remdesivir. On Dexamethasone. Tried BiPAP earlier this morning, patient could no tolerate it, stating that "I can't breath with this mask on me". Oxygen desaturated to the 60s% on room air, took about an hour for spo2 to reach high 80s on high flow oxygen 50L/min FiO2 100% plus nonrebreather mask 15L/min. 05/17: Had a lengthy discussion with patient regarding overall prognosis and goal of care, and we eventually reached the decision of switching to comfort care measures only. Will discontinue unnecessary labs and medications and will start comfort care measures only. Will transfer to med surg. Will notify bilingual case manager. Constitutional Vitals: Vital Signs Temp Pulse Resp BP Pulse Ox 37.2 C 103 H 31 H 115/63 81 L 05/17/21 04:01 05/17/21 08:17 05/17/21 08:17 05/17/21 08:01 05/17/21 08:17 Period Temp Pulse Resp BP Sys/Gaston Pulse Ox Last 24 Hr 36.8 C-37.2 C 68-103 18-36 107-140/45-86 81-92 Intake and Output 05/16/21 05/17/21 05/17/21 21:59 05:59 13:59 Intake Total 1090 960 350 Output Total 2300 700 450 Balance -1210 260 -100 Weight 122.016 kg Intake & Output: Intake & Output 05/16/21 05/17/21 05/17/21 21:59 05:59 13:59 Intake Total 1090 960 350 Output Total 2300 700 450 Balance -1210 260 -100 Weight 122.016 kg Intake: IV 250 Veklury 100 mg In Sodium 250 Chloride 0.9% 250 ml @ 500 mls/ hr IV Q24H [facility] Rx#:[id number] Oral 840 960 350 Output: Void Amount 2300 700 450 Other: Urine Appearance Clear Clear Clear Urine Color Bright Yellow Dark Yellow Pale General appearance: cooperative, mild distress and obese Head Head exam: Present atraumatic and normal inspection Eye Eye exam: Present normal appearance ENT ENT exam: Present mucous membranes moist, normal exam and normal external ear exam Additional comments: High flow oxygen and nonrebreather mask in place Neck Neck exam: Present normal inspection Respiratory Respiratory exam: Present normal respiratory exam, decreased breath sounds and rhonchi Cardiovascular Cardiovascular exam: Present normal rate and rhythm GI/Abdominal GI/Abdominal exam: Present normal bowel sounds Back Exam Back exam: Present normal inspection Neurological Exam Neurological exam: Present alert and oriented X3 Skin Skin exam: Present intact and warm OBJ DATA Labs CBC & Chem 7: 05/17/21 05:13 05/16/21 05:38 Labs: Abnormal Lab Results 05/17/21 05/16/21 05/16/21 05:13 05:38 05:38 WBC 11.7 H 13.4 H RBC 6.91 H 6.51 H MCV 66.7 L 66.4 L MCH 20.8 L 21.4 L RDW 22.2 H 21.1 H Neut % (Auto) 84.9 H 87.7 H Lymph % (Auto) 9.7 L 7.4 L Lymph # (Auto) 1.13 L 0.99 L Seg Neutrophils % Lymphocytes % Absolute Neutrophils 9.88 H 11.78 H RBC Morphology Polychromasia Hypochromasia Anisocytosis Microcytosis PT INR D-Dimer Potassium Carbon Dioxide Anion Gap BUN Glucose Hemoglobin A1c Calcium Magnesium 2.7 H AST Lactate Dehydrogenase C-Reactive Protein Albumin Albumin/Globulin Ratio Beta-Hydroxybutyrate Procalcitonin 05/16/21 05/15/21 05/15/21 05:38 18:30 18:30 WBC RBC MCV MCH RDW Neut % (Auto) Lymph % (Auto) Lymph # (Auto) Seg Neutrophils % Lymphocytes % Absolute Neutrophils RBC Morphology Polychromasia Hypochromasia Anisocytosis Microcytosis PT 16.0 H INR 1.2 H D-Dimer > 20.0 H Potassium 5.3 H Carbon Dioxide 20 L Anion Gap BUN 25 H Glucose 232 H Hemoglobin A1c 9.9 H Calcium 8.3 L Magnesium AST Lactate Dehydrogenase 876 H C-Reactive Protein Albumin 3.0 L Albumin/Globulin Ratio 0.9 L Beta-Hydroxybutyrate Procalcitonin 05/15/21 05/15/21 05/15/21 18:30 18:30 18:30 WBC RBC MCV MCH RDW Neut % (Auto) Lymph % (Auto) Lymph # (Auto) Seg Neutrophils % Lymphocytes % Absolute Neutrophils RBC Morphology Polychromasia Hypochromasia Anisocytosis Microcytosis PT INR D-Dimer Potassium Carbon Dioxide 18 L Anion Gap 18.0 H BUN 23 H Glucose 346 H Hemoglobin A1c Calcium 7.8 L Magnesium AST 40 H Lactate Dehydrogenase C-Reactive Protein 3.90 H Albumin Albumin/Globulin Ratio Beta-Hydroxybutyrate 2.76 H Procalcitonin 0.20 H 05/15/21 18:30 WBC 12.8 H RBC 6.77 H MCV 66.5 L MCH 20.8 L RDW 21.3 H Neut % (Auto) Lymph % (Auto) Lymph # (Auto) Seg Neutrophils % 86 H Lymphocytes % 8 L Absolute Neutrophils RBC Morphology Abnormal A Polychromasia 1+ A Hypochromasia 1+ A Anisocytosis 1+ A Microcytosis 1+ A PT INR D-Dimer Potassium Carbon Dioxide Anion Gap BUN Glucose Hemoglobin A1c Calcium Magnesium AST Lactate Dehydrogenase C-Reactive Protein Albumin Albumin/Globulin Ratio Beta-Hydroxybutyrate Procalcitonin Meds: Medications Acetaminophen (Acetaminophen 325 Mg Tablet) 650 mg PO Q6HP PRN; Protocol PRN Reason: Per Pain Protocol/Fever > 101 Albuterol/Ipratropium (Ipratropium/Albuterol 3 Ml Ampul.Neb) 3 ml NEB Q4HRT PRN PRN Reason: Wheezing Last Admin: 05/16/21 12:29 Dose: 3 ml Documented by: Alprazolam (Alprazolam 0.5 Mg Tablet) 1 mg PO BIDP PRN PRN Reason: Anxiety Last Admin: 05/16/21 21:01 Dose: 1 mg Documented by: Dextrose (Dextrose 50% 50 Ml Vial) 0 ml IV UD PRN PRN Reason: Hypoglycemia Diagnostic Test (Pha) (Accu-Chek 1 Each Strip) 1 each FS ACHS [facility] Last Admin: 05/17/21 06:44 Dose: 1 each Documented by: Docusate Sodium (Docusate Sodium 100 Mg Capsule) 100 mg PO BID [facility] Last Admin: 05/17/21 07:12 Dose: Not Given Documented by: Glucose (Dextrose 31 Gm Oral.Susp) 15 gm PO PRN PRN PRN Reason: Hypoglycemia Guaifenesin (Guaifenesin/Dextromethorphan Oral Crys) 10 ml PO Q4HP PRN PRN Reason: Cough Haloperidol Lactate (Haloperidol Lactate 5 Mg/Ml Vial) 5 mg IV Q8HP PRN PRN Reason: ANXIETY/SEDATION Azithromycin 500 mg/ Dextrose 250 mls @ 250 mls/hr IV Q24H [facility]; Protocol Stop: 05/18/21 01:25 Last Infusion: 05/16/21 12:39 Dose: Infused Documented by: Lactulose (Lactulose 20 Gm/30 Ml Oral.Crys) 10 gm PO DAILYP PRN PRN Reason: Constipation Lorazepam (Lorazepam 2 Mg/Ml Vial) 1 mg IV Q2-4HP PRN PRN Reason: ANXIETY/SEDATION Last Admin: 05/16/21 23:33 Dose: 1 mg Documented by: Ondansetron HCl (Ondansetron 4 Mg/2 Ml Vial) 4 mg IV Q4HP PRN; Protocol PRN Reason: Nausea And Vomiting Senna (Sennosides 1 Tablet) 2 tab PO HSP PRN PRN Reason: Constipation Sodium Chloride (0.9 % Sodium Chloride 10 Ml Syringe) 10 ml IV Q8 [facility] Last Admin: 05/17/21 05:17 Dose: 10 ml Documented by: Tamsulosin HCl (Tamsulosin 0.4 Mg Capsule) 0.4 mg PO QHS [facility] Last Admin: 05/16/21 20:33 Dose: Not Given Documented by: A/P Assessment and plan (1) Pneumonia due to COVID-19 virus: Status: Acute (2) Acute respiratory failure with hypoxia: Status: Acute (3) T2DM (type 2 diabetes mellitus): Status: Acute (4) Obesity (BMI 30-39.9): Status: Acute (5) Essential hypertension: Status: Acute (6) Hypothyroidism: Status: Acute (7) Hyperkalemia: Status: Acute Narrative A/P Narrative: Assessment and Plans: CoVID pneumonia with acute respiratory failure with hpoxia: Had a lengthy discussion with patient regarding overall prognosis and goal of care, and we eventually reached the decision of switching to comfort care measures only. Will discontinue unnecessary labs and medications and will start comfort care measures only. Will transfer to med surg. Will notify bilingual case manager. GI ppx: not currently indicated DVT ppx: not currently indicated Code status: comfort care only Prognosis: Poor Disposition: inpatient med surg Time Spent With Patient Time: Total time spent is greater than 50% in coordination of care (as documented) at patient's floor/unit and/or counseling patient: Total time spent with greater than 50% in coordination of care (as documented) at patient's floor/unit and/or counseling patient:: Greater than 35 minutes QUALITY VTE Deep Vein Thrombosis/Pulmonary Embolism Present on Admission: No
[2021-05-17 09:28] LABS: Phosphorous 4.6 mg/dL (2.5-4.5)
[2021-05-17 09:32] LABS: ALT/SGPT 30 U/L (<40); AST/SGOT 53 U/L (<40); Albumin 3.2 gm/dL (3.2-5.2); Alkaline Phosphatase 125 U/L (39-117); Bilirubin,Total 0.8 mg/dL (0.1-1.0); Blood Urea Nitrogen 27 mg/dL (6-20); Calcium 9.1 mg/dL (8.6-10.4); Carbon Dioxide 18 mmol/L (22-30); Chloride 104 mmol/L (96-108); Globulin 3.1 gm/dL (2.2-3.7); Glomerular Filtration Rate 101; Glucose 140 mg/dL (70-105)
[2021-05-17] MEDS: morphine 4 MG/ML VIAL IV PRN ×3 (13:26→15:48)
[2021-05-17] MEDS: LORazepam 2 MG/ML VIAL IV PRN ×3 (13:43→15:49)
[2021-05-17] MEDS ORDERED: 0.9 % SODIUM CHLORIDE 10 ML SYRINGE IV SCH (14:00)
--- NOTE | 2021-05-17 17:04 | Death Note ---
Discharge Sum: Prov Provider Patient information: Note initiated : 05/17/21 at 5:03 pm Service Date, if different from initiated Date: [] Patient: Alvin Catalan 55 y/o M admitted on 05/16/21 for SOB, Hypoxia, COVID +. Chief Complaint: [] Primary care physician: Carina Hector Attending physician on admission: Dequan Luque Consults: 05/15/21 Consult to Physician [CONS] Stat Comment: Consulting Provider: Dequan Luque Reason For Exam: Physician to Consult Discharge Sum: Diag Contributing Factors (1) Pneumonia due to COVID-19 virus: (2) Acute respiratory failure with hypoxia: (3) T2DM (type 2 diabetes mellitus): (4) Obesity (BMI 30-39.9): (5) Essential hypertension: (6) Hypothyroidism: (7) Hyperkalemia: Discharge Sum: Summary Date and Time Date of admission: 05/16/21 00:11 Date of : 05/17/21 Time of : 16:41 Additional Data Confirmation of as documented by pronouncing clinician: no pulse, no respirations, no heart sounds and pupils fixed and dilated Family: at bedside Attending/PCP notified?: Yes Attending physician: Dequan Luque MD Was code activated?: No Autopsy requested?: No yarn examiner skeins notified?: No Organ bank notified?: No Advance directives?: Yes Hospice patient?: No
== END 2021-05-17 17:41 | disposition expired | DRG 177 ==
LOC: ED 17:23 → ICU 05-16 00:11
PROVIDERS: ADMIT Internal Medicine; ATTEND Internal Medicine